=== PATIENT | male | born 1950 | race Caucasian/White ===

== ENCOUNTER → 2020-08-03 13:42 | Outpatient (BNVA) | payer MEDICARE, BC, SELFPAY | PROVIDERS: Visit Provider Surgery | DX: K43.2 Incisional hernia without obstruction or gangrene (principal) | CPT/HCPCS: 99202 ==

== ENCOUNTER → 2020-09-14 14:54 | Outpatient (BNVA) | payer MEDICARE, BC, SELFPAY | PROVIDERS: Visit Provider Surgery | DX: K43.2 Incisional hernia without obstruction or gangrene (principal) | CPT/HCPCS: 99212 ==

== ENCOUNTER 2020-10-20 06:07 | Day surgery (SDC) | payer MEDICARE, BC, SELFPAY ==
[2020-10-15 15:01] VITALS: BMI 44.1
--- NOTE | 2020-10-18 10:51 | HO.ANESPROP2 ---
Documented by User: Briseida Rice 10/19/20 07:46 HPI - Anesthesia Eval Consult details Narrative: 70yo M for Debridement of LQ Abdominal Wound PMFSH Active Problems Active Problems: All Active Problems (Updated 10/18/20 @ 10:35 by Yodit Pena) Incisional hernia (Acute) Obesity (BMI 30-39.9) (Acute) Past Medical History Medical History Aortic valve sclerosis Arthritis Asthma Back pain Chronic kidney disease (CKD), stage III (moderate) COVID-19 vaccine series completed Diabetes mellitus Diverticulitis Hepatic steatosis History of COVID-19 Hypertension Left bundle branch block (LBBB) Sleep apnea Family History Family History Mother History of kidney cancer History of pancreatic cancer Mother History of skin cancer Surgical History Surgical History H/O colectomy History of incisional hernia repair (2012) History of surgical removal of pilonidal cyst History of total knee arthroplasty Hx of colonoscopy Social History Social History Smoking Status: Never smoker Use of substances other than those prescribed or required for medical reasons: No Are you DNR?: No Advance Directives: No Advance Directives Information Provided: No Advance Directives on File: No Meds Allergies Allergy/AdvReac Type Severity Reaction Status Date / Time No Known Allergies Allergy Verified 10/20/20 06:16 Home Medications Medication Instructions Recorded Confirmed Last Taken Type allopurinol 300 mg tablet 300 mg PO DAILY 08/03/20 10/15/20 Unknown History aspirin 81 mg tablet,delayed 81 mg PO DAILY 08/03/20 10/15/20 10/14/20 09:00 History release blood sugar diagnostic #10 ea 08/03/20 09/15/20 Unknown History empagliflozin 25 mg tablet 25 mg PO DAILY 08/03/20 10/15/20 Unknown History glipizide 5 mg tablet, extended 10 mg PO DAILY 08/03/20 10/15/20 Unknown History release 24 hr lisinopril 40 mg tablet 40 mg PO DAILY 08/03/20 10/15/20 Unknown History metformin 500 mg tablet,extended 1,000 mg PO BID 08/03/20 10/15/20 Unknown History release 24 hr metoprolol succinate 50 mg 50 mg PO DAILY 08/03/20 10/15/20 10/20/20 05:00 History tablet,extended release 24 hr pioglitazone 45 mg tablet 45 mg PO DAILY 08/03/20 10/15/20 Unknown History simvastatin 20 mg tablet 20 mg PO BEDTIME 08/03/20 10/15/20 Unknown History testosterone cypionate 200 mg/mL 200 mg IM Q3W 08/03/20 10/15/20 Unknown History intramuscular oil Exam Exam Date and Time: October 18, 2020 1051 Height,Weight and Vital Signs: Height 5 ft 8 in Weight 131.542 kg Narrative Narrative: EKG 05/2020 per cardiac note, wave tracing not avail NSR @ 67, LBBB (old), LAD ECHO 2017 LVEF 55-60% No RWMA. Aortic valve sclerosis without stenosis. Normal diastolic function. Assessment and Plan Assessment Anesthesia Assessment: Chart Reviewed Documented by User: Dena Cali 10/20/20 07:22 [facility] Past Medical History Medical History Aortic valve sclerosis Arthritis Asthma Back pain Chronic kidney disease (CKD), stage III (moderate) COVID-19 vaccine series completed Diabetes mellitus Diverticulitis Hepatic steatosis History of COVID-19 Hypertension Left bundle branch block (LBBB) Sleep apnea Family History Family History Mother History of kidney cancer History of pancreatic cancer Mother History of skin cancer Surgical History Surgical History H/O colectomy History of incisional hernia repair (2012) History of surgical removal of pilonidal cyst History of total knee arthroplasty Hx of colonoscopy Social History Social History (Reviewed 10/20/20 @ 07:21 by Dena Tay Smoking Status: Never smoker Use of substances other than those prescribed or required for medical reasons: No Are you DNR?: No Advance Directives: No Advance Directives Information Provided: No Advance Directives on File: No Meds Allergies Allergy/AdvReac Type Severity Reaction Status Date / Time No Known Allergies Allergy Verified 10/20/20 06:16 Home Medications Medication Instructions Recorded Confirmed Last Taken Type allopurinol 300 mg tablet 300 mg PO DAILY 08/03/20 10/15/20 Unknown History aspirin 81 mg tablet,delayed 81 mg PO DAILY 08/03/20 10/15/20 10/14/20 09:00 History release blood sugar diagnostic #10 ea 08/03/20 09/15/20 Unknown History empagliflozin 25 mg tablet 25 mg PO DAILY 08/03/20 10/15/20 Unknown History glipizide 5 mg tablet, extended 10 mg PO DAILY 08/03/20 10/15/20 Unknown History release 24 hr lisinopril 40 mg tablet 40 mg PO DAILY 08/03/20 10/15/20 Unknown History metformin 500 mg tablet,extended 1,000 mg PO BID 08/03/20 10/15/20 Unknown History release 24 hr metoprolol succinate 50 mg 50 mg PO DAILY 08/03/20 10/15/20 10/20/20 05:00 History tablet,extended release 24 hr pioglitazone 45 mg tablet 45 mg PO DAILY 08/03/20 10/15/20 Unknown History simvastatin 20 mg tablet 20 mg PO BEDTIME 08/03/20 10/15/20 Unknown History testosterone cypionate 200 mg/mL 200 mg IM Q3W 08/03/20 10/15/20 Unknown History intramuscular oil Exam Airway Mallampati Class: III TM Dist: >3cm Neck ROM: Full Heart: RRR Lungs: CTA
[2020-10-20] VITALS (9 sets, daily range): BP systolic 96–129; BP diastolic 45–67; PULSE 75–89; RESP 16–26; TEMP 36.1–36.2; O2SAT 94–100
[2020-10-20 06:32] LABS: Hematocrit 45.4 % (42-52); Hemoglobin 14.8 g/dl (14.0-18.0); Mean Corpuscular HGB Conc 32.6 g/dl (31.0-36.0); Mean Corpuscular Hemoglobin 30.6 pg (27.0-33.0); Mean Corpuscular Volume 93.8 fL (80-98); Mean Platelet Volume 9.6 fL (9.4-12.4); Platelet Count 182 X10*3/uL (160-400); Red Blood Count 4.84 X10*6/uL (4.60-5.80); Red Cell Distribution Width 14.9 % (11.0-16.0); White Blood Count 8.8 X10*3/uL (4.8-10.8)
[2020-10-20 06:34] LABS: Glucose, Whole Blood 167 mg/dL (60-115)
[2020-10-20] MEDS: Lactated Ringers 1,000 ML 100 ML IVCONT (06:55)
--- NOTE | 2020-10-20 06:58 | PC.NURSE ---
verified with dr gross... do not shave abd.
[2020-10-20 06:59] LABS: Anion Gap 17 (12-20); Blood Urea Nitrogen 41 mg/dL (9-16); Calcium 9.4 mg/dL (8.4-10.2); Carbon Dioxide 22 mmol/L (22-29); Chloride 105 mmol/L (96-108); Creatinine Clr Calc Pharmacy 44.2; Estimated Glomerular Filt Rate 33; Glucose Fasting 179 mg/dL (60-99); Potassium 4.5 mmol/L (3.3-5.1); Sodium 139 mmol/L (135-145)
--- NOTE | 2020-10-20 07:23 | MHC.SHP ---
Pre-Procedural Eval Section A The patient is an INPATIENT: No Changes since office visit: Yes Patient answered all questions; No Cold of Flu in the past 2 weeks, No New Medical Problems and No Changes in Medication The History & Physical has been completed within 30 days and I have reviewed it.: Yes Section B Chief Complaint: Incisional Hernia Allergies: Allergies Allergy/AdvReac Type Severity Reaction Status Date / Time No Known Allergies Allergy Verified 10/20/20 06:16 Plan Diagnosis/Plan: Unchanged I have reviewed the history and physical and performed a pertinent physical examination on my patient. No changes have occurred unless specified.
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
== END 2020-10-20 10:26 | disposition home or self-care (01) ==
PROVIDERS: Nurse Practitioner; Visit Provider Surgery
PROC: (CPT 22903; principal; 2020-10-20 07:30)
DX: T81.83XA Persistent postprocedural fistula, initial encounter (principal); T81.42XA Infection following a procedure, deep incisional surgical site, initial encounter; K63.2 Fistula of intestine; Y83.8 Other surgical procedures as the cause of abnormal reaction of the patient, or of later complication, without mention of misadventure at the time of the procedure; Y92.9 Unspecified place or not applicable; J45.909 Unspecified asthma, uncomplicated; E11.22 Type 2 diabetes mellitus with diabetic chronic kidney disease; I12.9 Hypertensive chronic kidney disease with stage 1 through stage 4 chronic kidney disease, or unspecified chronic kidney disease; N18.30 Chronic kidney disease, stage 3 unspecified; Z79.84 Long term (current) use of oral hypoglycemic drugs; G47.33 Obstructive sleep apnea (adult) (pediatric); Z99.89 Dependence on other enabling machines and devices; Z87.19 Personal history of other diseases of the digestive system; Z90.49 Acquired absence of other specified parts of digestive tract; Z86.16 Personal history of COVID-19; Z79.82 Long term (current) use of aspirin; Z79.899 Other long term (current) drug therapy
CPT/HCPCS: 22903; 36415; 80048; 82947; 85027; 88304; J0131; J0690; J2250; J2370; J2405; J3010

== ENCOUNTER → 2020-11-02 14:30 | Outpatient (BNVA) | payer MEDICARE, BC, SELFPAY | PROVIDERS: Visit Provider Surgery | DX: L02.211 Cutaneous abscess of abdominal wall (principal) | CPT/HCPCS: 99212 ==

== ENCOUNTER → 2020-11-11 15:19 | Outpatient (BNVA) | payer MEDICARE, BC, SELFPAY | PROVIDERS: Visit Provider Surgery | DX: L02.211 Cutaneous abscess of abdominal wall (principal); Z48.01 Encounter for change or removal of surgical wound dressing; K57.92 Diverticulitis of intestine, part unspecified, without perforation or abscess without bleeding; K76.0 Fatty (change of) liver, not elsewhere classified; I12.9 Hypertensive chronic kidney disease with stage 1 through stage 4 chronic kidney disease, or unspecified chronic kidney disease; E11.22 Type 2 diabetes mellitus with diabetic chronic kidney disease; N18.30 Chronic kidney disease, stage 3 unspecified | CPT/HCPCS: 99212 ==

== ENCOUNTER → 2021-03-01 14:37 | Outpatient (BNVA) | payer MEDICARE, BC, SELFPAY | PROVIDERS: Visit Provider Surgery | DX: Z87.2 Personal history of diseases of the skin and subcutaneous tissue (principal) | CPT/HCPCS: 99212 ==